=== PATIENT | male | born 1950 | race Caucasian/White ===

== ENCOUNTER 2019-12-19 20:39 | Emergency (ER) | payer BC, OTHER ==
[2019-12-19] MEDS ORDERED: Ringers Lactate 1,000 ML IV ONE (21:28)
[2019-12-19] MEDS ORDERED: ONDANSETRON 4 MG/2 ML VIAL ONE (21:28)
[2019-12-19 21:29] LABS: Absolute Lymphocytes (CBC) 0.8 K/uL (0.7-4.9); Basophils % 0.4 % (0-1.3); Hematocrit 43.2 % (39.6-49.0); Lymphocytes % 9.2 % (15.3-44.8); RBC Red Blood Cell Count 4.78 M/uL (4.33-5.43)
[2019-12-19 21:39] LABS: Albumin 3.1 g/dL (3.4-5.0); Bilirubin Direct 0.3 mg/dL (0-0.2); Bilirubin Total 1.1 mg/dL (0.2-1.0); Magnesium 2.4 mg/dL (1.8-2.4); Potassium 3.5 mmol/L (3.5-5.1); Protein, Total 7.6 g/dL (6.4-8.2)
--- NOTE | 2019-12-19 22:41 | EDPHYS ---
[facility] Name: Ronn Ortega Age: 69 yrs Sex: Male : 1950 Arrival Date: 12/19/2019 Time: 20:40 Bed 6 Private MD: ED Physician Aamir Escalona HPI: 12/18 21:56 This 69 yrs old Male presents to ER via Ambulatory with complaints of Fever, jr8 Covid +, low oxygen saturation. 21:56 The patient reports fever, not measured (subjective). Onset: The symptoms/episode jr8 began/occurred gradually, 1 week(s) ago. Associated signs and symptoms: Pertinent positives: diarrhea, nausea. Severity of symptoms: At their worst the symptoms were mild in the emergency department the symptoms are unchanged. The patient has not experienced similar symptoms in the past. The patient has been recently seen by a physician:. Patient stated that he came down with s/s of covid last week. Was admitted to [facility] on and released on Thursday. Stated that today he was monitoring his O2 saturation and had taken it several times showing low saturation below 90%. Denies GUERRA or shortness of breath. Came to be reevaluated . Historical: - Allergies: 20:55 No Known Allergies; ll1 - PMHx: 20:55 Hyperlipidemia; Diabetes - NIDDM; Hypertension; Hypothyroidism; ll1 - Immunization history:: Flu vaccine is up to date. - Social history:: Smoking status: Patient denies any tobacco usage or history of. ROS: 21:56 Eyes: Negative for injury, pain, redness, and discharge, ENT: Negative for injury, jr8 pain, and discharge, Neck: Negative for injury, pain, and swelling, Cardiovascular: Negative for chest pain, palpitations, and edema, Respiratory: Negative for shortness of breath, cough, wheezing, and pleuritic chest pain, Back: Negative for injury and pain, MS/Extremity: Negative for injury and deformity, Skin: Negative for injury, rash, and discoloration, Neuro: Negative for headache, weakness, numbness, tingling, and seizure. 21:56 Abdomen/GI: Positive for nausea. Exam: 21:56 Eyes: Pupils equal round and reactive to light, extra-ocular motions intact. Lids and jr8 lashes normal. Conjunctiva and sclera are non-icteric and not injected. Cornea within normal limits. Periorbital areas with no swelling, redness, or edema. ENT: Nares patent. No nasal discharge, no septal abnormalities noted. Tympanic membranes are normal and external auditory canals are clear. Oropharynx with no redness, swelling, or masses, exudates, or evidence of obstruction, uvula midline. Mucous membranes moist. Neck: Trachea midline, no thyromegaly or masses palpated, and no cervical lymphadenopathy. Supple, full range of motion without nuchal rigidity, or vertebral point tenderness. No Meningismus. Cardiovascular: Regular rate and rhythm with a normal S1 and S2. No gallops, murmurs, or rubs. Normal PMI, no JVD. No pulse deficits. Respiratory: Lungs have equal breath sounds bilaterally, clear to auscultation and percussion. No rales, rhonchi or wheezes noted. No increased work of breathing, no retractions or nasal flaring. Abdomen/GI: Soft, non-tender, with normal bowel sounds. No distension or tympany. No guarding or rebound. No evidence of tenderness throughout. Back: No spinal tenderness. No costovertebral tenderness. Full range of motion. Skin: Warm, dry with normal turgor. Normal color with no rashes, no lesions, and no evidence of cellulitis. MS/ Extremity: Pulses equal, no cyanosis. Neurovascular intact. Full, normal range of motion. Neuro: Awake and alert, GCS 15, oriented to person, place, time, and situation. Cranial nerves II-XII grossly intact. Motor strength 5/5 in all extremities. Sensory grossly intact. Cerebellar exam normal. Normal gait. Vital Signs: 20:51 BP 154 / 86; Pulse 92; Resp 18; Temp 98.3; Pulse Ox 100% ; Pain 0/10; ll1 21:42 BP 145 / 89; Pulse 83; Resp 21; Pulse Ox 93% on R/A; rv 22:55 BP 135 / 78; Pulse 80; Resp 18; Temp 98.2; Pulse Ox 95% on R/A; mg2 MDM: 20:54 Patient medically screened. [facility] 21:56 Data reviewed: vital signs, nurses notes, lab test result(s), and as a result, I will jr8 discharge patient. Data interpreted: Pulse oximetry: on room air is 94 %. Interpretation: acceptable. Counseling: I had a detailed discussion with the patient and/or guardian regarding: the historical points, exam findings, and any diagnostic results supporting the discharge/admit diagnosis, the presence of at least one elevated blood pressure reading (>120/80) during this emergency department visit, the need for outpatient follow up, a family practitioner, to return to the emergency department if symptoms worsen or persist or if there are any questions or concerns that arise at home. ED course: Patient continues to be without increased work of breathing. Oxygen saturation between 93-95% RA. No need for admission for oxygen requirement at this time. Discussed this with patient and need for continued monitoring at home. If worse to come back. Patient is good with this. Patient also on steroids still. 12/18 20:57 Order name: Basic Metabolic Panel; Complete Time: 21:56 12/18 20:57 Order name: CBC with Diff 12/18 20:57 Order name: Hepatic Function; Complete Time: 21:56 12/18 20:57 Order name: Lipase; Complete Time: 21:56 12/18 20:57 Order name: Magnesium; Complete Time: 21:56 12/18 21:33 Order name: Manual Differential EDMS 12/18 20:57 Order name: IV Saline Lock; Complete Time: 21:21 12/18 20:57 Order name: Labs collected and sent; Complete Time: 21:21 Administered Medications: 21:21 Drug: Lactated Ringers Solution 1000 ml Route: IV; Rate: 150 bolus; Site: left rv antecubital; 21:21 Drug: Zofran (Ondansetron) 4 mg Route: IVP; Site: left antecubital; rv 22:49 Follow up: Response: No adverse reaction mg2 Disposition: 12/19 06:30 Co-signature as Attending Physician, Aamir Escalona MD I agree with the assessment and 4 plan of care. Disposition: 12/19/19 22:40 Discharged to Home. Impression: Coronavirus as the cause of diseases classified elsewhere, Nausea. - Condition is Stable. - Discharge Instructions: Nausea and Vomiting, Adult, COVID-19. - Prescriptions for Zofran ODT 4 mg Oral tablet,disintegrating - place 1 tablet by TRANSLINGUAL route every 8 hours As needed; 12 tablet. - Medication Reconciliation Form, Thank You Letter, Antibiotic Education, Prescription Opioid Use form. - Follow up: Private Physician; When: 2 - 3 days; Reason: Recheck today's complaints, Continuance of care, Re-evaluation by your physician. - Problem is new. - Symptoms have improved. Signatures: Dispatcher [employer] EDMS Sukhdeep Pickering, BONI PA jr8 Aamir Escalona MD MD tw4 Roosevelt Fitch, RN RN mg2 Zen Dee RN RN rv Chalino Leone RN RN ll1 Corrections: (The following items were deleted from the chart) 12/18 22:40 22:40 12/19/2019 22:40 Discharged to Home. Impression: Coronavirus as the cause of jr8 diseases classified elsewhere. Condition is Stable. Forms are Medication Reconciliation Form, Thank You Letter, Antibiotic Education, Prescription Opioid Use. Follow up: Private Physician; When: 2 - 3 days; Reason: Recheck today's complaints, Continuance of care, Re-evaluation by your physician. Problem is new. Symptoms have improved. jr8 22:56 22:40 12/19/2019 22:40 Discharged to Home. Impression: Coronavirus as the cause of mg2 diseases classified elsewhere; Nausea. Condition is Stable. Forms are Medication Reconciliation Form, Thank You Letter, Antibiotic Education, Prescription Opioid Use. Follow up: Private Physician; When: 2 - 3 days; Reason: Recheck today's complaints, Continuance of care, Re-evaluation by your physician. Problem is new. Symptoms have improved. jr8
--- NOTE | 2019-12-19 22:41 | ER ---
Nurse's Notes [facility] Name: Ronn Ortega Age: 69 yrs Sex: Male : 1950 Arrival Date: 12/19/2019 Time: 20:40 Bed 6 Private MD: Diagnosis: Coronavirus as the cause of diseases classified elsewhere;Nausea Presentation: 12/18 20:51 Chief complaint: Patient states: Covid positive last week, admitted to [place]. ll1 Started to feel bad again Thursday. + diarrhea and weak. Fever 102 at home. Coronavirus screen: Client denies travel out of the [place] in the last 14 days. cough unrelated to allergies, fatigue, fever, Client reports previous positive COVID test result. Ebola Screen: Patient denies travel to an Ebola-affected area in the 21 days before illness onset. Initial Sepsis Screen: Does the patient meet any 2 criteria? No. Patient's initial sepsis screen is negative. Risk Assessment: Do you want to hurt yourself or someone else? Patient reports no desire to harm self or others. Onset of symptoms was December 12, 2019. 20:51 Method Of Arrival: Ambulatory ll1 20:51 Acuity: JESSICA 3 ll1 21:42 Initial Sepsis Screen: Does the patient have a suspected source of infection? No. rv Patient's initial sepsis screen is negative. Historical: - Allergies: 20:55 No Known Allergies; ll1 - PMHx: 20:55 Hyperlipidemia; Diabetes - NIDDM; Hypertension; Hypothyroidism; ll1 - Immunization history:: Flu vaccine is up to date. - Social history:: Smoking status: Patient denies any tobacco usage or history of. Screenin:42 Abuse screen: Denies threats or abuse. Denies injuries from another. Nutritional rv screening: No deficits noted. Tuberculosis screening: No symptoms or risk factors identified. Fall Risk None identified. Assessment: 21:41 General: Appears comfortable, Behavior is calm, cooperative. Pain: Complains of pain in rv abdomen. Neuro: Level of Consciousness is awake, alert, obeys commands, Oriented to person, place, time, situation. Cardiovascular: Patient's skin is warm and dry. Rhythm is sinus rhythm. Respiratory: Airway is patent Respiratory effort is even, unlabored, Breath sounds are clear bilaterally. Derm: Skin is intact. 21:43 Reassessment: patient's oxygen saturation is between 91-93% at room air. referred to [place], advised observation. patient denies SOB/ at this time. 22:55 Reassessment: Patient appears in no apparent distress at this time. Patient and/or mg2 family updated on plan of care and expected duration. Pain level reassessed. Patient is alert, oriented x 3, equal unlabored respirations, skin warm/dry/pink. Vital Signs: 20:51 BP 154 / 86; Pulse 92; Resp 18; Temp 98.3; Pulse Ox 100% ; Pain 0/10; ll1 21:42 BP 145 / 89; Pulse 83; Resp 21; Pulse Ox 93% on R/A; rv 22:55 BP 135 / 78; Pulse 80; Resp 18; Temp 98.2; Pulse Ox 95% on R/A; mg2 ED Course: 20:40 Patient arrived in ED. cl3 20:48 Zen Dee RN is Primary Nurse. rv 20:49 Sukhdeep Pickering PA is PHCP. jr8 20:49 Aamir Escalona MD is Attending Physician. jr8 20:54 Triage completed. ll1 20:55 Arm band placed on Patient placed in an exam room, on a stretcher. ll1 21:21 Initial lab(s) drawn, by me, sent to lab. Inserted saline lock: 20 gauge in left rv antecubital area, using aseptic technique. Blood collected. 21:42 Patient has correct armband on for positive identification. cardiac monitor technician on. Pulse rv ox on. NIBP on. 22:55 No provider procedures requiring assistance completed. IV discontinued, intact, mg2 bleeding controlled, No redness/swelling at site. Pressure dressing applied. Administered Medications: 21:21 Drug: Lactated Ringers Solution 1000 ml Route: IV; Rate: 150 bolus; Site: left rv antecubital; 21:21 Drug: Zofran (Ondansetron) 4 mg Route: IVP; Site: left antecubital; rv 22:49 Follow up: Response: No adverse reaction mg2 Outcome: 22:40 Discharge ordered by . jr8 22:56 Discharged to home ambulatory. mg2 22:56 Condition: good 22:56 Discharge instructions given to patient, Instructed on discharge instructions, follow up and referral plans. medication usage, Demonstrated understanding of instructions, follow-up care, medications, Prescriptions given X 1. 22:56 Patient left the ED. mg2 Signatures: Sukhdeep Pickering PA PA jr8 Roosevelt Fitch RN RN mg2 Zen Dee RN RN rv Татьяна Leone cl3 Chalino Leone RN RN ll1
[2019-12-19 22:59] LABS: Blood Morphology Comment NOT SEEN (NOT SEEN); Platelet Estimate ADEQ
[2019-12-19 23:08] VITALS: BP 135/78; TEMP 98.2; O2SAT 95
== END 2019-12-19 22:56 | disposition home or self-care (01) ==
LOC: ER 20:39
DX: U07.1 COVID-19 (principal); R11.0 Nausea
CPT/HCPCS: 85025; 80048; 36415; 83735; 80076; 83690; 96374; 99284; J7120; J2405

== ENCOUNTER 2020-03-18 21:17 | Observation (INO) | payer OTHER ==
--- OUTSIDE RECORDS SUMMARY | 2020-03-18 21:19 | XMS REPORT | Continuity of Care Document ---
:1950 Author Organization [facility] Address [address] [place] [address] Care Team Providers Name Role Phone Sanford Lopez MD Primary Care Physician Doctor Unassigned, Name Attending Clinician Unavailable John AMARO Attending Clinician Problems Condition Condition Condition Status Onset Resolution Last Treating Co mments Source Name Details Category Date Date Treatment Clinician Date Unstable Un[facility] 00 Syncope Syncope Disease Active [place] and and 12-25 [facility] collapse collapse 00:00: st 00 Allergies, Adverse Reactions, Alerts This patient has no known allergies or adverse reactions. Social History Social Habit Start Date Stop Date Quantity Comments Source Sex Assigned At [facility]ist Tobacco use and 2018-12-26 2018-12-26 Never used [facility] exposure 00:00:00 00:00:00 Alcohol intake 2018-12-26 2018-12-26 Ex-drinker [facility] 00:00:00 00:00:00 (finding) Smoking Status Start Date Stop Date Source Never smoker [place] [facility] Medications Ordered Filled Start Stop Current Ordering Indication Dosage Frequency Signature Comments Components Source Medication Medication Date Date Medication? Clinician (SIG) Name Name metFORMIN Yes 1000mg Q.5D Take 1,000 [place] (GLUCOPHAGE 9-29 mg by [facility] ) 1,000 mg 13:25: mouth 2 st tablet 58 (two) times a day with meals. glimepiride Yes 4mg QD Take 4 mg [place] (AMARYL) 4 - by mouth Metho di MG tablet 13:25: daily st 58 before breakfast. aspirin Yes 81mg QD Take 81 mg [place] (ECOTRIN) 9- by mouth Method i 81 MG 13:25: daily. st enteric 58 coated tablet levothyroxi Yes 50ug QD Take 50 [place] st[place] ne 9-29 mcg by [facility] (SYNTHROID, 13:25: mouth st LEVOXYL) 50 58 daily. mcg tablet atorvastati Yes 20mg QD Take 20 mg [place] n (LIPITOR) 9-29 by mouth Meth rosetta 20 MG 13:25: daily. st tablet 58 Default OP ins Procedures This patient has no known procedures. Plan of Care Planned Activity Planned Date Details Comments Source Future Scheduled 2019-10-29 INFLUENZA VACCINE [place] [facility] 00:00:00 [code = INFLUENZA VACCINE] Future Scheduled 2017 65+ PNEUMOCOCCAL [place] [facility] 00:00:00 VACCINE (1 of 1 - PPSV23) [code = 65+ PNEUMOCOCCAL VACCINE (1 of 1 - PPSV23)] Future Scheduled 2002 COLONOSCOPY SCREENING [place] [facility] 00:00:00 [code = COLONOSCOPY SCREENING] Future Scheduled 2002 SHINGLES VACCINES (#1) [facility] 00:00:00 [code = SHINGLES VACCINES (#1)] Future Scheduled 1968 COVID-19 VACCINE (#1) [place] [facility] 00:00:00 [code = COVID-19 VACCINE (#1)] Future Scheduled 1962 DIABETES: RETINAL EYE [place] [facility] 00:00:00 EXAM [code = DIABETES: RETINAL EYE EXAM] Future Scheduled 1962 DIABETIC FOOT EXAM [place] [facility] 00:00:00 [code = DIABETIC FOOT EXAM] Future Scheduled 1962 URINE MICROALBUMIN [place] [facility] 00:00:00 [code = URINE MICROALBUMIN] Encounters Start End Encounter Admission Attending Care Care Encounter Source Date/Time Date/Time Type Type Clinicians Facility Department ID 2020-02-06 2020-02-06 Orders Doctor MULLEN [id number] 00:00:00 00:00:00 Only Unassigned, KARMA [id number] [place] [facility] [id number] 2020-01-16 2020-01-16 Office LopezANTOINETTE [id number] 30 12:43:52 12:58:52 [facility] [id number] [place] [id number] [place] [phone] nal 044 Office [address] 2020-01-16 2020-01-16 Orders Doctor PAZ [id number] 00:00:00 00:00:00 Only Unassigned, [place] [id number] [place] [facility] [id number] Results This patient has no known results.
--- OUTSIDE RECORDS SUMMARY | 2020-03-18 21:19 | XMS REPORT | Summary of Care ---
:1950 Author Organization [facility] Address [address] [place] [address] Care Team Providers Name Role Phone MD John Primary Care Provider Reason for Visit Reason Comments Follow-up annual checkup Diabetes discuss control of DM Encounter Details Date Type Department Care Team Description 01/16/2020 Office Visit [facility] Family Dillon Lopez, Type 2 diabetes mellitus with other specified complication, without long-term current use of insulin (Primary Dx); Juan Mitchell MD Essential hypertension; [address] [place] [address] Hyperlip idemia, unspecified hyperlipidemia type; Drive DR[address] Hypothyroidism, [place] [phone] Allergies No Known Allergiesdocumented as of this encounter (statuses as of 01/16/2020) Medications Medication Sig Dispensed Refills Start Date End Date Status atorvastatin 40 mg Take 1 90 tablet 1 01/16/2020 Active tabletIndications: tablet by Type 2 diabetes mouth mellitus with other daily. specified complication, without long-term current use of insulin metFORMIN 1,000 mg Take 1 180 tablet 1 01/16/2020 Active tabletIndications: tablet by Type 2 diabetes mouth 2 mellitus with other (two) times specified daily. complication, without long-term current use of insulin lisinopriL 20 mg Take 1 90 tablet 1 01/16/2020 Ac tive tabletIndications: tablet by Essential mouth hypertension daily. levothyroxine 100 TAKE ONE 90 tablet 1 01/16/2020 A ctive mcg TABLET BY tabletIndications: MOUTH ONCE Hypothyroidism, DAILY unspecified type glimepiride 4 mg Take 1 90 tablet 1 01/16/2020 Ac tive tabletIndications: tablet by Type 2 diabetes mouth mellitus with other daily. specified complication, without long-term current use of insulin bisoproloL-hydrochl Take 1 90 tablet 1 01/16/2020 Active orothiazide 5-6.25 tablet by mg per mouth tabletIndications: daily. Essential hypertension dulaglutide inject 0.5 12 Syringe 1 01/16/2020 Activ e (TRULICITY) 0.75 mL under mg/0.5 mL the skin PnIjIndications: weekly. Type 2 diabetes mellitus with other specified complication, without long-term current use of insulin Liraglutide inject 0.3 9 Syringe 1 08/28/2016 Discon tinued (VICTOZA 2-RASHEEDA) 0.6 mL under 0 (Availability) mg/0.1 mL (18 mg/3 the skin mL) injection daily. LEVOTHYROXINE 100 TAKE ONE 90 tablet 0 09/23/2016 D iscontinued mcg tablet TABLET BY 0 (Reorder) MOUTH ONCE DAILY METFORMIN 1,000 mg TAKE ONE 180 tablet 1 03/11/2017 Discontinued tablet TABLET BY 0 (Reorder) MOUTH TWICE DAILY PRAVASTATIN 40 mg TAKE ONE 90 tablet 1 05/01/2017 D iscontinued tablet TABLET BY 0 (Ineffecti ve MOUTH ONCE Medicatio n) DAILY GLIMEPIRIDE 4 mg TAKE ONE 90 tablet 1 07/27/2017 Di scontinued tablet TABLET BY 0 (Reorder) MOUTH ONCE DAILY BISOPROLOL-HYDROCHL TAKE ONE 30 tablet 0 11/05/2017 Discontinued OROTHIAZIDE 5-6.25 TABLET BY 0 ( Reorder) mg per tablet MOUTH ONCE DAILY LISINOPRIL 20 mg TAKE ONE 90 tablet 1 04/05/2018 Di scontinued tablet TABLET BY 0 (Reorder) MOUTH ONCE DAILY atorvastatin 40 mg Take 40 mg 0 Discontinued tablet by mouth 0 (Reorder) daily. documented as of this encounter (statuses as of 01/16/2020) Active Problems Problem Noted Date Type 2 diabetes mellitus 05/31/2015 Essential hypertension 05/31/2015 Hyperlipidemia 05/31/2015 documented as of this encounter (statuses as of 01/16/2020) Social History Tobacco Use Types Packs/Day Years Used Date Never Smoker Smokeless Tobacco: Never Used Sex Assigned at Date Recorded Not on file COVID-19 Exposure Response Date Recorded In the last month, have you been in contact with No / Unsure 01/16/2020 12:54 PM CDT someone who was confirmed or suspected to have Coronavirus / COVID-19? documented as of this encounter Last Filed Vital Signs Vital Sign Reading Time Taken Comments Blood Pressure 123/72 01/16/2020 12:53 PM CDT Pulse 83 01/16/2020 12:53 PM CDT Temperature - - Respiratory Rate - - Oxygen Saturation - - Inhaled Oxygen Concentration - - Weight 87.1 kg (192 lb) 01/16/2020 12:53 PM CDT Height - - Body Mass Index - - documented in this encounter Progress Notes Dillon Lopez MD - 01/16/2020 1:00 PM CDT Cc: DM, f/u Chief Complaint Patient presents with Follow-up annual checkup Diabetes discuss control of DM Ronn Ortega is a 69 year old male. Here to f/u on DM, HTN Allergies Ronn has No Known Allergies. Medications Outpatient Medications Prior to Visit Medication Sig Dispense Refill LISINOPRIL 20 mg tablet TAKE ONE TABLET BY MOUTH ONCE DAILY 90 tablet 1 BISOPROLOL-HYDROCHLOROTHIAZIDE 5-6.25 mg per tablet TAKE ONE TABLET BY MOUTH ONCE DAILY 30 tablet 0 GLIMEPIRIDE 4 mg tablet TAKE ONE TABLET BY MOUTH ONCE DAILY 90 tablet 1 PRAVASTATIN 40 mg tablet TAKE ONE TABLET BY MOUTH ONCE DAILY 90 tablet 1 METFORMIN 1,000 mg tablet TAKE ONE TABLET BY MOUTH TWICE DAILY 180 tablet 1 LEVOTHYROXINE 100 mcg tablet TAKE ONE TABLET BY MOUTH ONCE DAILY 90 tablet 0 Liraglutide (VICTOZA 2-RASHEEDA) 0.6 mg/0.1 mL (18 mg/3 mL) injection inject 0.3 mL under the skin daily. 9 Syringe 1 No facility-administered medications prior to visit. Histories No past medical history on file. No past surgical history on file. Social History Socioeconomic History Marital status: Spouse name: Not on file Number of children: Not on file Years of education: Not on file Highest education level: Not on file Occupational History Not on file Social Needs Financial resource strain: Not on file Food insecurity Worry: Not on file Inability: Not on file Transportation needs Medical: Not on file Non-medical: Not on file Tobacco Use Smoking status: Not on file Substance and Sexual Activity Alcohol use: Not on file Drug use: Not on file Sexual activity: Not on file Lifestyle Physical activity Days per week: Not on file Minutes per session: Not on file Stress: Not on file Relationships Social connections Talks on phone: Not on file Gets together: Not on file Attends amish service: Not on file Active member of club or organization: Not on file Attends meetings of clubs or organizations: Not on file Relationship status: Not on file Intimate partner violence Fear of current or ex partner: Not on file Emotionally abused: Not on file Physically abused: Not on file Forced sexual activity: Not on file Other Topics Concern Not on file Social History Narrative Not on file No family history on file. Review of Systems Vital Signs There were no vitals taken for this visit. Physical Exam Vitals signs reviewed. Constitutional: Appearance: Normal appearance. HENT: Head: Normocephalic and atraumatic. Right Ear: Tympanic membrane normal. Left Ear: Tympanic membrane normal. Nose: Nose normal. Neck: Musculoskeletal: Normal range of motion. Cardiovascular: Rate and Rhythm: Normal rate and regular rhythm. Pulses: Normal pulses. Pulmonary: Effort: Pulmonary effort is normal. Breath sounds: Normal breath sounds. Musculoskeletal: Normal range of motion. Skin: General: Skin is warm and dry. Neurological: General: No focal deficit present. Mental Status: He is alert. Assessment/Plan HTN, DMII, need medication update, add trulicity Vacuum device for ED This visit did not involve counseling and coordination that comprised more than 50% of the visit time. documented in this encounter Plan of Treatment Health Maintenance Due Date Last Done Comments HEPATITIS C (HCV) SCREEN 1950 EYE EXAM 1960 URINE MICROALBUMIN 1962 FOOT EXAM 1970 DTaP,Tdap,and Td Vaccines (1 - Tdap) 08/08/1971 COLON CANCER SCREENING ANNUAL FIT/FOBT 2002 COLON CANCER SCREENING FIT DNA EVERY 3 2002 YEARS COLON CANCER SCREENING SIGMOIDOSCOPY EVERY 2002 5 YEARS COLONOSCOPY 2002 Colorectal Cancer Screening 2002 Zoster Recombinant Vaccine (SHINGRIX) (1 2002 of 2) HgA1C 02/26/2017 08/26/2016 Medicare Wellness Visit 2017 PNEUMOCOCCAL VACCINES 65+ (1 of 1 - 2017 PPSV23) CREATININE (SERUM) 08/26/2017 08/26/2016 LDL-C 08/26/2017 08/26/2016 INFLUENZA VACCINE (#1) 2019 Depression Screening 01/15/2021 01/16/2020, 01/16/2020 documented as of this encounter Results Not on filedocumented in this encounter Visit Diagnoses Diagnosis Type 2 diabetes mellitus with other spec ified complication, without long-term current use of insulin - Primary Essential hypertension Unspecified essential hypertension Hyperlipidemia, unspecified hyperlipidem ia type Hypothyroidism, unspecified type documented in this encounter Insurance Payer Benefit Plan / Subscriber ID Effective Phone Address T ype Group Dates MEDICARE MEDICARE PART [id number] 2017-Pres [phone] A & B ent [phone] [place] [address] COMMERCIAL COMMERCIAL [id number] 2017-Pres HMO /PPO/POS NON-CONTRACT NON-CONTRACT ent GENERIC GENERIC documented as of this encounter
--- OUTSIDE RECORDS SUMMARY | 2020-03-18 21:19 | XMS REPORT | Clinical Summary ---
:1950 Author Organization [facility] Address [address] [place] [address] Care Team Providers Name Role Phone Sanford Lopez MD Primary Care Provider Allergies No Known Active Allergies Medications Medication Sig Dispensed Refills Start Date End Date Status metFORMIN (GLUCOPHAGE) Take 1,000 mg by 0 Active 1,000 mg tablet mouth 2 (two) times a day with meals. glimepiride (AMARYL) 4 Take 4 mg by 0 Active MG tablet mouth daily before breakfast. aspirin (ECOTRIN) 81 MG Take 81 mg by 0 Active enteric coated tablet mouth daily. levothyroxine Take 50 mcg by 0 A ctive (SYNTHROID, LEVOXYL) 50 mouth daily. mcg tablet atorvastatin (LIPITOR) Take 20 mg by 0 Active 20 MG tablet mouth daily. Default OP ins Active Problems Problem Noted Date Unstable angina 12/26/2018 Syncope and collapse 12/25/2018 Medical History Medical History Date Comments Hypertension Diabetes mellitus (HCC) Hypercholesteremia Social History Tobacco Use Types Packs/Day Years Used Date Never Smoker Smokeless Tobacco: Never Used Alcohol Use Drinks/Week oz/Week Comments Not Currently Sex Assigned at Date Recorded Not on file Last Filed Vital Signs Not on file Plan of Treatment Health Maintenance Due Date Last Done Comments DIABETES: RETINAL EYE EXAM 1962 DIABETIC FOOT EXAM 1962 URINE MICROALBUMIN 1962 COVID-19 VACCINE (#1) 1968 COLONOSCOPY SCREENING 2002 SHINGLES VACCINES (#1) 2002 65+ PNEUMOCOCCAL VACCINE (1 of 1 - PPSV23) 2017 INFLUENZA VACCINE 10/29/2019 Results Not on fileafter 03/18/2019 Insurance Payer Benefit Plan / Subscriber ID Effective Phone Address T ype Group Dates MEDICARE MEDICARE PART A [id number] 2017-Pres [place], [place] Medicare AND B ent COMMERCIAL MISC MISC COMMERCIAL [id number] 2017-Pres Commercial ent Advance Directives For more information, please contact: [phone] Type Date Recorded Patient Manager Telemetry Explanati on Advance Directives, Living Will and Medical Power of Formulation Technician
--- OUTSIDE RECORDS SUMMARY | 2020-03-18 21:20 | XMS REPORT | Summary of Care ---
:1950 Author Organization [facility] - [facility] Address [address] [place] [address] Care Team Providers Name Role Phone MD John Primary Care Provider Encounter Details Date Type Department Care Team Description 02/06/2020 Orders Only [facility] Doctor Unassigned, No [address] [facility] Name [place] [id number] [address] [place] [id number] Allergies No Known Allergiesdocumented as of this encounter (statuses as of 02/06/2020) Medications Medication Sig Dispensed Refills Start Date End Date Status atorvastatin 40 mg Take 1 tablet by 90 tablet 1 01/16/2020 Active tabletIndications: Type mouth daily. 2 diabetes mellitus with other specified complication, without long-term current use of insulin metFORMIN 1,000 mg Take 1 tablet by 180 tablet 1 01/16/2020 Active tabletIndications: Type mouth 2 (two) 2 diabetes mellitus times daily. with other specified complication, without long-term current use of insulin lisinopriL 20 mg Take 1 tablet by 90 tablet 1 01/16/2020 Active tabletIndications: mouth daily. Essential hypertension levothyroxine 100 mcg TAKE ONE TABLET 90 tablet 1 01/16/2020 Active tabletIndications: BY MOUTH ONCE Hypothyroidism, DAILY unspecified type glimepiride 4 mg Take 1 tablet by 90 tablet 1 01/16/2020 Active tabletIndications: Type mouth daily. 2 diabetes mellitus with other specified complication, without long-term current use of insulin bisoproloL-hydrochlorot Take 1 tablet by 90 tablet 1 0 Active hiazide 5-6.25 mg per mouth daily. tabletIndications: Essential hypertension dulaglutide (TRULICITY) inject 0.5 mL 12 Syringe 1 01/16/2020 Active 0.75 mg/0.5 mL under the skin PnIjIndications: Type 2 weekly. diabetes mellitus with other specified complication, without long-term current use of insulin documented as of this encounter (statuses as of 02/06/2020) Active Problems Problem Noted Date Type 2 diabetes mellitus 05/31/2015 Essential hypertension 05/31/2015 Hyperlipidemia 05/31/2015 documented as of this encounter (statuses as of 02/06/2020) Social History Tobacco Use Types Packs/Day Years [...] of this encounter Last Filed Vital Signs Not on filedocumented in this encounter Plan of Treatment Date Type Specialty Care Team Description 07/16/2020 Office Visit Family Medicine Dillon Lopez MD [address] [place] [phone] Health Maintenance Due Date Last Done Comments [...] 01/16/2020, 01/16/2020 documented as of this encounter Procedures Procedure Name Priority Date/Time Associated Diagnosis Comme nts EXTERNAL PROVIDER Routine 02/06/2020 12:01 AM CROP DUSTER RECORDS documented in this encounter Results Not on filedocumented in this encounter Insurance Payer Benefit Plan / Subscriber ID Effective Phone Address T ype Group Dates MEDICARE MEDICARE PART [id number] 2017-Pres [phone] Medicare A & B ent [phone] [id number] [place] [address] COMMERCIAL COMMERCIAL [id number] 2017-Pres HMO /PPO/POS NON-CONTRACT NON-CONTRACT ent GENERIC GENERIC documented as of this encounter
--- OUTSIDE RECORDS SUMMARY | 2020-03-18 21:20 | XMS REPORT | Summary of Care ---
:1950 Author Organization [facility] Address [address] [place] [address] Care Team Providers Name Role Phone MD John Primary Care Provider Reason for Visit Reason Comments Follow-up annual checkup Diabetes discuss control of DM Encounter Details Date Type Department Care Team Description 01/16/2020 Office Visit [facility] Family Dillon Lopez, Type 2 diabetes mellitus with other specified complication, without long-term current use of insulin (Primary Dx); Juan Mitchell MD Essential hypertension; [address] [place] [address] Hyperlip idemia, unspecified hyperlipidemia type; [address] Hypothyroidism, [place] [phone] Allergies No Known Allergiesdocumented [...] file Gets together: Not on file Attends bapt[employer] service: Not on file Active member of [...] T ype Group Dates MEDICARE MEDICARE PART [id number] 2017-Pres [phone] Medicare A & B ent [phone] [id number] [place] [address] COMMERCIAL COMMERCIAL [id number] 2017-Pres HMO /PPO/POS NON-CONTRACT NON-CONTRACT ent GENERIC GENERIC documented as of this encounter
--- OUTSIDE RECORDS SUMMARY | 2020-03-18 21:20 | XMS REPORT | Summary of Care ---
:1950 Author Organization [facility] - Health Address [address] [place] [address] Care Team Providers Name Role Phone MD John Primary Care Provider Encounter Details Date Type Department Care Team Description 01/16/2020 Orders Only [facility] Doctor Unassigned, No 301 [facility] Name [place] [id number] [place] [id number] Allergies No Known Allergiesdocumented as of this encounter (statuses as of 01/17/2020) Medications Medication Sig Dispensed Refills Start Date [...] as of this encounter (statuses as of 01/17/2020) Active Problems Problem Noted Date Type 2 diabetes mellitus 05/31/2015 Essential hypertension 05/31/2015 Hyperlipidemia 05/31/2015 documented as of this encounter (statuses as of 01/17/2020) Social History Tobacco Use Types Packs/Day Years [...] Office Visit Family Medicine Dillon Lopez MD [address] [place] [phone] Health Maintenance Due Date Last Done [...] Name Priority Date/Time Associated Diagnosis Comme nts AUTHORIZATION TO RELEASE Routine 01/16/2020 12:01 AM PHI TO [facility] CDT documented in this encounter Results Not on filedocumented in this encounter Insurance Payer Benefit Plan / Subscriber ID Effective Phone Address T ype Group Dates MEDICARE MEDICARE PART [id number] 2017-Pres [phone] Medicare A & B ent [phone] [id number] [place] [address] COMMERCIAL COMMERCIAL [id number] 2017-Pres HMO /PPO/POS NON-CONTRACT NON-CONTRACT ent GENERIC GENERIC documented as of this encounter
[2020-03-18] MEDS ORDERED: ASPIRIN 81 MG CHEWABLE TABLET ONE (22:09)
[2020-03-18 22:32] LABS: Protime INR 0.91
[2020-03-18 22:33] LABS: Absolute Lymphocytes (CBC) 2.4 K/uL (0.7-4.9); Basophils % 0.5 % (0-1.3); Hematocrit 41.8 % (39.6-49.0); MPV 7.5 fL (7.6-11.3); RBC Red Blood Cell Count 4.56 M/uL (4.33-5.43)
[2020-03-18 22:49] LABS: ALT/SGPT 16 U/L (12-78); AST/SGOT 18 U/L (15-37); Alkaline Phosphatase 63 U/L (45-117); BUN Blood Urea Nitrogen 12 mg/dL (7-18); Bicarbonate 28 mmol/L (21-32); Bilirubin Direct 0.2 mg/dL (0-0.2); Bilirubin Total 0.9 mg/dL (0.2-1.0); Glucose Level 266 mg/dL (74-106); Magnesium 2.2 mg/dL (1.8-2.4); NT PRO-BNP 73 pg/mL (<125); Potassium 3.5 mmol/L (3.5-5.1); Protein, Total 7.6 g/dL (6.4-8.2); Sodium Level 138 mmol/L (136-145); Troponin (Emerg Dept Use Only) < 0.02 ng/mL (0.0-0.045)
[2020-03-19 01:45] LABS: Troponin (Emerg Dept Use Only) < 0.02 ng/mL (0.0-0.045)
--- NOTE | 2020-03-19 01:50 | ER ---
Nurse's Notes [facility] Name: Ronn Ortega Age: 69 yrs Sex: Male : 1950 Arrival Date: 03/18/2020 Time: 21:17 Bed 5 Private MD: Dillon Lopez S Diagnosis: Chest pain, unspecified Presentation: 03/18 21:28 Chief complaint: Patient states: CP off/on for a few days. Has gotten worse and more ll1 constant the past hour. Noticed pain radiates into neck area. Coronavirus screen: Client denies travel out of the [place] in the last 14 days. At this time, the client does not indicate any symptoms associated with coronavirus-19. Ebola Screen: Patient denies travel to an Ebola-affected area in the 21 days before illness onset. Initial Sepsis Screen: Does the patient meet any 2 criteria? No. Patient's initial sepsis screen is negative. Risk Assessment: Do you want to hurt yourself or someone else? Patient reports no desire to harm self or others. Onset of symptoms was March 15, 2020. 21:28 Method Of Arrival: Ambulatory ll1 21:28 Acuity: JESSICA 3 ll1 Historical: - Allergies: 21:31 No Known Allergies; ll1 - PMHx: 21:31 Diabetes - NIDDM; Hyperlipidemia; Hypertension; Hypothyroidism; ll1 - PSHx: 21:31 None; ll1 - Immunization history:: Flu vaccine is up to date. - Social history:: Smoking status: Patient denies any tobacco usage or history of. Screenin/21 01:26 Abuse screen: Denies threats or abuse. Denies injuries from another. Nutritional mg2 screening: No deficits noted. Tuberculosis screening: No symptoms or risk factors identified. Fall Risk IV access (20 points). Assessment: 03/18 21:35 General: Appears in no apparent distress. comfortable, Behavior is calm, cooperative, jb4 appropriate for age. Pain: Complains of pain in chest Pain radiates to throat Pain Quality of pain is described as filling Pain began 6 am Is intermittent. Neuro: Level of Consciousness is awake, alert, obeys commands, Oriented to person, place, time, situation. Cardiovascular: Patient's skin is warm and dry. Rhythm is sinus rhythm. Respiratory: Airway is patent Respiratory effort is even, unlabored, Respiratory pattern is regular, symmetrical. GI: No signs and/or symptoms were reported involving the gastrointestinal system. : No signs and/or symptoms were reported regarding the genitourinary system. EENT: No signs and/or symptoms were reported regarding the EENT system. Derm: Skin is intact, Skin is pink, warm \T\ dry. Musculoskeletal: Circulation, motion, and sensation intact. Range of motion: intact in all extremities. 22:45 Reassessment: Patient appears in no apparent distress at this time. Patient and/or jb4 family updated on plan of care and expected duration. Pain level reassessed. Patient is alert, oriented x 3, equal unlabored respirations, skin warm/dry/pink. 03/19 00:00 Reassessment: Patient appears in no apparent distress at this time. Patient and/or jb4 family updated on plan of care and expected duration. Pain level reassessed. Patient is alert, oriented x 3, equal unlabored respirations, skin warm/dry/pink. 01:00 Reassessment: Patient appears in no apparent distress at this time. Patient and/or jb4 family updated on plan of care and expected duration. Pain level reassessed. Patient is alert, oriented x 3, equal unlabored respirations, skin warm/dry/pink. 02:00 Reassessment: Patient appears in no apparent distress at this time. Patient and/or jb4 family updated on plan of care and expected duration. Pain level reassessed. Patient is alert, oriented x 3, equal unlabored respirations, skin warm/dry/pink. 03:00 Reassessment: Patient appears in no apparent distress at this time. Patient and/or jb4 family updated on plan of care and expected duration. Pain level reassessed. Patient is alert, oriented x 3, equal unlabored respirations, skin warm/dry/pink. 04:00 Reassessment: Patient appears in no apparent distress at this time. Patient and/or jb4 family updated on plan of care and expected duration. Pain level reassessed. Patient is alert, oriented x 3, equal unlabored respirations, skin warm/dry/pink. Vital Signs: 03/18 21:28 BP 143 / 83; Pulse 70; Resp 17; Temp 98.4; Pulse Ox 99% ; Weight 90.72 kg; Height 6 ft. ll1 2 in. (187.96 cm); Pain 4/10; 22:45 BP 108 / 73; Pulse 66; Resp 16; Pulse Ox 97% on R/A; jb4 23:45 BP 108 / 63; Pulse 67; Resp 14; Pulse Ox 98% on R/A; jb4 03/19 01:26 BP 108 / 71; Pulse 63; Resp 18; Pulse Ox 98% on R/A; mg2 02:30 BP 137 / 76; Pulse 63; Resp 16; Pulse Ox 99% on R/A; jb4 03:30 BP 128 / 79; Pulse 71; Resp 16; Pulse Ox 98% on R/A; jb4 03/18 21:28 Body Mass Index 25.68 (90.72 kg, 187.96 cm) 1 ED Course: 03/18 21:17 Patient arrived in ED. am2 21:18 Dillon Lopez MD is Private Physician. am2 21:27 Arm band placed on. ll1 21:30 Triage completed. ll1 21:30 Patient has correct armband on for positive identification. Bed in low position. Call jb4 light in reach. Side rails up X 1. personnel monitor on. Pulse ox on. NIBP on. 21:40 Kelby Mukherjee PA is PHCP. cp 21:41 Patric Tamez MD is Attending Physician. cp 21:51 Thompson Thakkar, DINESH is Primary Nurse. jb4 22:27 XRAY Chest (1 view) In Process Unspecified. EDMS 23:30 Initial lab(s) drawn, by vt, sent to lab. Inserted saline lock: 20 gauge in right jb4 antecubital area, using aseptic technique. Blood collected. Patient maintains SpO2 saturation greater than 95% on room air. 03/19 02:03 Arsenio Hurley MD is Hospitalizing Provider. cp 02:36 No provider procedures requiring assistance completed. Patient admitted, IV remains in jb4 place. Administered Medications: 03/18 21:59 Drug: Aspirin Chewable Tablet 324 mg Route: PO; jb4 22:30 Follow up: Response: No adverse reaction jb4 Outcome: 03/19 02:04 Decision to Hospitalize by Provider. cp 04:14 Admitted to Med/surg accompanied by nurse, via wheelchair, room 230, with chart, Report jb4 called to DINESH Chamberlain 04:14 Condition: stable 04:14 Discharge instructions given to patient, Instructed on the need for admit, Demonstrated understanding of instructions. 04:25 Patient left the ED. mg2 Signatures: Dispatcher [employer] EDMS Kelby Mukherjee PA PA cp Bryson, James RN RN jb4 Lucrecia Cedeno am2 Roosevelt Fitch RN RN mg2 Chalino Leone RN RN ll1
--- NOTE | 2020-03-19 01:50 | EDPHYS ---
Physician Documentation [facility] Name: Ronn Ortega Age: 69 yrs Sex: Male : 1950 Arrival Date: 03/18/2020 Time: 21:17 Bed 5 Private MD: Dillon Lopez S ED Physician Patric Tamez HPI: 03/18 21:51 This 69 yrs old Male presents to ER via Ambulatory with complaints of Chest cp Pain > 30 y/o. 21:51 The patient or guardian reports chest pain that is located primarily in the substernal cp area. Onset: today, at 20:00. The pain radiates to neck. 21:51 Duration: The patient or guardian reports a single episode, that is still ongoing, but cp improving. Historical: - Allergies: 21:31 No Known Allergies; ll1 - PMHx: 21:31 Diabetes - NIDDM; Hyperlipidemia; Hypertension; Hypothyroidism; ll1 - PSHx: 21:31 None; ll1 - Immunization history:: Flu vaccine is up to date. - Social history:: Smoking status: Patient denies any tobacco usage or history of. ROS: 21:55 Constitutional: Negative for body aches, chills, fever, poor PO intake. cp 21:55 Eyes: Negative for injury, pain, redness, and discharge. cp 21:55 ENT: Negative for ear pain, sore throat, difficulty swallowing, difficulty handling secretions. 21:55 Cardiovascular: Positive for chest pain, Negative for edema, palpitations. 21:55 Respiratory: Negative for cough, shortness of breath, wheezing. 21:55 Abdomen/GI: Negative for abdominal pain, nausea, vomiting, and diarrhea, constipation. 21:55 Back: Negative for radiated pain. 21:55 Neuro: Negative for altered mental status, headache, syncope, weakness. 21:55 All other systems are negative. Exam: 21:50 ECG was reviewed by the Attending Physician. cp 21:58 Constitutional: The patient appears in no acute distress, alert, awake, comfortable, cp non-diaphoretic, non-toxic, well developed, well nourished. 21:58 Head/Face: Normocephalic, atraumatic. cp 21:58 Eyes: Periorbital structures: appear normal, Conjunctiva: normal, no exudate, no injection, Sclera: no appreciated abnormality, Lids and lashes: appear normal, bilaterally. 21:58 ENT: External ear(s): are unremarkable, Nose: is normal, Mouth: Lips: moist, Oral mucosa: moist, Posterior pharynx: Airway: no evidence of obstruction, patent. 21:58 Neck: ROM/movement: is normal, is supple, without pain, no range of motions limitations. 21:58 Chest/axilla: Inspection: normal. 21:58 Cardiovascular: Rate: normal, Rhythm: regular, Pulses: Pulses are 2+ in right radial artery and left radial artery. Heart sounds: murmur, not appreciated, Edema: is not appreciated, JVD: is not appreciated. 21:58 Respiratory: the patient does not display signs of respiratory distress, Respirations: normal, no use of accessory muscles, no retractions, labored breathing, is not present, Breath sounds: are clear throughout, no decreased breath sounds, no stridor, no wheezing. 21:58 Abdomen/GI: Inspection: abdomen appears normal, Palpation: abdomen is soft and non-tender, in all quadrants. 21:58 Neuro: Orientation: to person, place \T\ time. Mentation: is normal. Vital Signs: 21:28 BP 143 / 83; Pulse 70; Resp 17; Temp 98.4; Pulse Ox 99% ; Weight 90.72 kg; Height 6 ft. ll1 2 in. (187.96 cm); Pain 4/10; 22:45 BP 108 / 73; Pulse 66; Resp 16; Pulse Ox 97% on R/A; jb4 23:45 BP 108 / 63; Pulse 67; Resp 14; Pulse Ox 98% on R/A; jb4 03/19 01:26 BP 108 / 71; Pulse 63; Resp 18; Pulse Ox 98% on R/A; mg2 02:30 BP 137 / 76; Pulse 63; Resp 16; Pulse Ox 99% on R/A; jb4 03:30 BP 128 / 79; Pulse 71; Resp 16; Pulse Ox 98% on R/A; jb4 03/18 21:28 Body Mass Index 25.68 (90.72 kg, 187.96 cm) ll1 MDM: 03/18 21:42 Patient medically screened. cp 22:00 Differential diagnosis: acute myocardial infarction, pneumonia, pneumothorax, pulmonary cp embolus, stable angina, thoracic aortic disection, unstable angina. 23:00 The patient was given aspirin in the Emergency Department. cp 23:00 HEART Score: History: Moderately Suspicious (1), ECG: Normal (0), Age: > or = 65 years cp (2), Risk Factors: > or = 3 Risk factors for atherosclerotic disease (2), [Hypercholesterolemia] [Hypertension] [DM] Troponin: < or = 1 x Normal Limit (0). 03/19 01:50 Data reviewed: vital signs, nurses notes, lab test result(s), EKG, radiologic studies, cp plain films, I have discussed the patient's presentation/case with the attending Emergency Department Physician;. 01:50 Test interpretation: by ED physician or midlevel provider: ECG, chest xray negative for cp infiltrates. Counseling: I had a detailed discussion with the patient and/or guardian regarding: the historical points, exam findings, and any diagnostic results supporting the discharge/admit diagnosis, lab results, radiology results, the need for further work-up and treatment in the hospital. 03/18 21:41 Order name: Basic Metabolic Panel; Complete Time: 22:56 cp 03/18 22:56 Interpretation: Normal except: GLUC 266. cp 03/18 21:41 Order name: CBC with Diff; Complete Time: 22:56 cp 03/18 21:41 Order name: LFT's; Complete Time: 22:56 cp 03/18 21:41 Order name: Magnesium; Complete Time: 22:56 cp 03/18 21:41 Order name: NT PRO-BNP; Complete Time: 22:56 cp 03/18 21:41 Order name: PT-INR; Complete Time: 22:56 cp 03/18 21:41 Order name: Troponin (emerg Dept Use Only); Complete Time: 22:56 cp 03/19 01:02 Order name: Troponin (emerg Dept Use Only) jb4 03/19 01:49 Interpretation: Reviewed. cp 03/19 02:29 Order name: Lipid Profile EDMS 03/19 02:29 Order name: Thyroid Stimulating Hormone EDMS 03/19 02:29 Order name: CBC with Automated Diff EDMS 03/19 02:29 Order name: CBC with Automated Diff EDMS 03/19 02:29 Order name: Comprehensive Metabolic Panel EDDC 03/19 02:29 Order name: Comprehensive Metabolic Panel EDDC 03/18 21:41 Order name: XRAY Chest (1 view) cp 03/18 21:41 Order name: EKG; Complete Time: 21:42 cp 03/19 02:29 Order name: CONS Pharmacy Consult EDMS 03/19 02:29 Order name: CONS Physician Consult EDMS 03/19 02:29 Order name: Consistent Carb (ADA) [address] Rub[address] EDMS 03/19 02:29 Order name: Echo with Doppler EDMS 03/19 02:29 Order name: EKG Electrocardiogram EDMS 03/19 02:29 Order name: EKG Electrocardiogram EDMS 03/19 02:29 Order name: Troponin I EDMS 03/19 02:29 Order name: Troponin I EDMS 03/19 02:29 Order name: Troponin I EDMS 03/19 02:29 Order name: Troponin I EDDC 03/19 02:30 Order name: CORONAVIRUS EDDC 03/19 04:03 Order name: SARS-COV-2 RT PCR EDMS 03/19 04:10 Order name: Thyroid Stimulating Hormone EDDC 03/18 21:41 Order name: Cardiac monitoring; Complete Time: 21:52 cp 03/18 21:41 Order name: EKG - Nurse/Tech; Complete Time: 21:52 cp 03/18 21:41 Order name: IV Saline Lock; Complete Time: 22:09 cp 03/18 21:41 Order name: Labs collected and sent; Complete Time: 22:09 cp 03/18 21:41 Order name: O2 Per Protocol; Complete Time: 21:52 cp 03/18 21:41 Order name: O2 Sat Monitoring; Complete Time: 21:52 cp EC/20 21:50 Rate is 69 beats/min. Rhythm is regular. MN interval is normal. QRS interval is normal. cp QT interval is normal. T waves are Flattened in lead aVL. Interpreted by me. Reviewed by me. Administered Medications: 21:59 Drug: Aspirin Chewable Tablet 324 mg Route: PO; jb4 22:30 Follow up: Response: No adverse reaction jb4 Disposition: 03/19/20 02:04 Hospitalization ordered by Arsenio Hurley for Observation. Preliminary diagnosis is Chest pain, unspecified. - Bed requested for Telemetry/MedSurg (observation). - Status is Observation. mg2 - Condition is Stable. - Problem is new. - Symptoms are resolved. Addendum: 03/23/2020 05:30 Co-signature as Attending Physician, Patric Tamez MD. m Signatures: Dispatcher [employer] EDMS Nani Reyes RN RN mw Kelby uMkherjee PA PA cp Thompson Thakkar, RN RN jb4 Rooesvelt Fitch, RN RN mg2 Chalino Leone RN RN ll1 Patric Tamez MD MD [id number] Corrections: (The following items were deleted from the chart) 03/19 02:02 01:49 03/19/2020 01:49 Patients has left against medical advice. Impression: Chest cp pain, unspecified. Patient states they are going to Home. Condition is Stable. Follow up: Private Physician; When: 1 - 2 days; Reason: Recheck today's complaints. Problem is new. Symptoms are resolved. cp 02:13 02:04 Hospitalization Ordered by Arsenio Hurley MD for Observation. Preliminary mw diagnosis is Chest pain, unspecified. Bed requested for Telemetry/MedSurg (observation). Status is Observation. Condition is Stable. Problem is new. Symptoms are resolved. cp 04:25 02:13 03/19/2020 02:04 Hospitalization Ordered by Arsenio Hurley MD for Observation. mg2 Preliminary diagnosis is Chest pain, unspecified. Bed requested for Telemetry/MedSurg (observation). Status is Observation. Condition is Stable. Problem is new. Symptoms are resolved. mw
--- NOTE | 2020-03-19 02:24 | P.HP ---
Patient History Date of Service: 03/19/20 Reason for admission: chest pain History of Present Illness: 69-year-old male past medical history of HTN, HLD, diabetes mellitus type 2 admitted for new onset left-sided chest pain while driving this evening, pain is located in substernal region radiating to the neck, lasted for about an hr. He rates pain at about 4/10. Pain was more of congestive pattern, not sharp or stabbing, he denies any fever and no chills no cough. He denies any associated shortness of breath or palpitations. Pain spontaneously resolved 1 hr after onset and after arrival in the ED. He recalls similar pain of more severity 1 year ago after a constitution party where he has drank some alcohol. He was managed at [facility] with negative sets of cardiac enzymes after which she had a stress test done 1 week later that was essentially negative. He admits to eating a new potato chips 1 hr before onset of symptoms today. Since arrival in the ED he has not had any recurrence of the pain symptoms. He admits to a family history of heavy smoking and valvular heart problem in his father in his 60s patient denies any history of tobacco use. He is a social drinker. States his latest hemoglobin A1c was elevated at about 9 and he was recently started on trulicity. Initial set of cardiac enzymes negative. Patient have a normal findings on EKG. He has been admitted to observation for rule out acute coronary syndrome. Allergies No Known Allergies Allergy (Unverified 03/19/20 02:41) Home medications list reviewed: Yes - Past Medical/Surgical History Has patient received pneumonia vaccine in the past: No -: HTN,HLD,DM-II Past Surgical History: Patient denies surgical history - Social History Smoking Status: Never smoker Alcohol use: No CD- Drugs: No Caffeine use: No Place of Residence: Home Review of Systems 10-point ROS is otherwise unremarkable Physical Examination - Physical Exam General: Alert, In no apparent distress, Oriented x3, Cooperative HEENT: Atraumatic, Normocephalic, PERRLA Neck: Supple, 2+ carotid pulse no bruit, JVD not distended Respiratory: Clear to auscultation bilaterally, Normal air movement Cardiovascular: No edema, Normal pulses, Regular rate/rhythm, Normal S1 S2 Gastrointestinal: Normal bowel sounds, Soft and benign, Non-distended Musculoskeletal: No clubbing, No swelling Integumentary: No rashes, No breakdown Neurological: Normal gait, Normal speech, Normal strength at 5/5 x4 extr, Normal tone - Studies Laboratory Data (last 24 hrs) 03/18/20 22:05: PT 10.8, INR 0.91 03/18/20 22:05: WBC 5.8, Hgb 14.4, Hct 41.8, Plt Count 255 03/18/20 22:05: Sodium 138, Potassium 3.5, BUN 12, Creatinine 0.80, Glucose 266 H, Magnesium 2.2, Total Bilirubin 0.9, AST 18, ALT 16, Alkaline Phosphatase 63 Assessment and Plan - Problems (Diagnosis) (1) Chest pain in adult Current Visit: Yes Status: Acute (2) HTN (hypertension) Current Visit: Yes Status: Acute (3) Diabetes Current Visit: Yes Status: Acute - Advance Directives Does patient have a Living Will: No Does patient have a Durable POA for Healthcare: No - Code Status/Comfort Care Code Status: Full Code Physician Review: Patient Assessed, Agree with Above Assessment and Plan Physician Review Additional Text: ATYPICAL CHEST PAIN-may be due to CAD at rest/but also possible due to the GERD We will do serial set of cardiac enzymes Given multiple risk factor with DC score of 3, patient might benefit from stress test after negative cardiac enzymes. Will consult Cardiology Do sublingual nitroglycerin p.r.n. will start aspirin now will dose Lovenox as well as beta karel although marginally low blood pressure noted Obtain lipid panel, tsh if negative repeat EKG with no changes and Echo wnl , may be able to dc home with outpatient stress test Since possibility of GERD, we start PPI # Hypokalemia - will replete #HTN-borderline low blood pressure, obtain a resume home meds #Diabetes mellitus-under primary/metformin, resume home regimen, do insulin sliding scale with Accu-Cheks #Disposition possible hospital stay for less than 24 hr #Advanced directive patient wishes to be full code Patient anxious to be discharged home son. He was initially planning to leave AMA but later agreeable to staying to complete 3rd set of cardiac enzymes as well as repeat EKG in a.m.. If repeat EKG and cardiac enzyme normal , patient can be discharged to follow up with his pet sitting for repeat outpatient stress test Time Spent Managing Pts Care (In Minutes): 70
[2020-03-19] MEDS ORDERED: MORPHINE 2 MG/ML SYR IV PRN (02:25)
[2020-03-19] MEDS ORDERED: ONDANSETRON 4 MG/2 ML VIAL IV PRN (02:25)
[2020-03-19] MEDS ORDERED: POTASSIUM 25 MEQ EFFERV TAB PO ONE (02:28)
[2020-03-19] MEDS ORDERED: SODIUM CHLORIDE 0.9% 10ML INJ IV PRN (03:00)
[2020-03-19] MEDS ORDERED: PANTOPRAZOLE 40 MG INJ IVP ONE (03:00)
[2020-03-19] MEDS ORDERED: POTASSIUM 25 MEQ EFFERV TAB ONE (03:50)
[2020-03-19 04:32] VITALS: BMI 24.8
[2020-03-19 05:50] LABS: HDL Cholesterol 37 mg/dL (40-60); LDL Cholesterol, Calculated 29 (<130)
[2020-03-19] MEDS ORDERED: LEVOTHYROXINE SOD 0.1 MG TAB PO SCH (06:30)
[2020-03-19] MEDS ORDERED: PANTOPRAZOLE 40MG TABLET PO SCH (06:30)
--- NOTE | 2020-03-19 07:35 | EKG ---
Test Date: 2020-03-18 Test Time: 21:39:01 [employer] Supervisor: JULIA MEASUREMENT RESULTS: Intervals: Rate: 69 AZ: 158 QRSD: 94 QT: 424 QTc: 454 Keeler: P: 64 AZ: 158 QRS: 20 T: 51 INTERPRETIVE STATEMENTS: Normal sinus rhythm Normal ECG Compared to ECG 03/30/2004 05:36:00 T-wave abnormality no longer present Electronically Signed On 03-19-20 07:34:15 CARE WORKER by Sam Acosta
--- NOTE | 2020-03-19 08:03 | RAD REPORT ---
EXAM DESCRIPTION: [facility] Single View03/18/2020 10:26 pm CLINICAL HISTORY: Chest pain COMPARISON: none FINDINGS: The lungs appear clear of acute infiltrate. The heart is normal size IMPRESSION: No acute abnormalities displayed
[2020-03-19] MEDS: INSULIN -REGULAR HUMAN 50 UNIT/0.5 ML ML SQ SCH ×3 (08:46→16:30)
[2020-03-19] MEDS ORDERED: ASPIRIN 81 MG CHEWABLE TABLET PO SCH (09:00)
[2020-03-19] MEDS ORDERED: ENOXAPARIN 40 MG/0.4 ML SQ SCH (09:00)
[2020-03-19] MEDS ORDERED: ATORVASTATIN 40 MG TAB PO SCH (09:00)
[2020-03-19] MEDS ORDERED: BISOPROLOL/HCTZ 5/6.25MG TAB PO SCH (09:00)
[2020-03-19] MEDS ORDERED: NITROGLYCERIN 0.2 MG/HR (5 MG) PATCH TD SCH (09:00)
[2020-03-19] MEDS ORDERED: HEPA 1000U/500MLS 2,000 UNIT/1,000 ML BAG IV ONE (14:16)
[2020-03-19] MEDS ORDERED: NA CHLORIDE 0.9% 500 ML ONE ×2 (14:46→15:47)
[2020-03-19] MEDS ORDERED: HEPARIN 5000 UNIT/ML 1 ML VIAL ONE (15:02)
[2020-03-19] MEDS ORDERED: MIDAZOLAM HCL 2 MG/2 ML INJ ONE (15:02)
[2020-03-19] MEDS ORDERED: FENTANYL CITR 100 MCG/2 ML ONE (15:03)
[2020-03-19] MEDS ORDERED: NITROGLYCERIN 100 MCG/ML SYR (for cath lab use only) IV ONE (15:03)
--- NOTE | 2020-03-19 16:07 | P.DS ---
Admission Date: 03/19/20 Discharge Date: 03/19/20 Primary Care Provider: Dr. Lopez Disposition: ROUTINE DISCHARGE Discharge Condition: GOOD Reason for Admission: chest pain Consultations: Cardiology-Dr. De Procedures: Heart catheterization: Normal coronaries Medical problem list: Chest pain Hypertension Diabetes mellitus type 2 Hyperlipidemia GERD Hypothyroidism Brief History of Present Illness: 69-year-old male past medical history of HTN, HLD, diabetes mellitus type 2 admitted for new onset left-sided chest pain while driving this evening, pain is located in substernal region radiating to the neck, lasted for about an hr. He rates pain at about 4/10. Pain was more of congestive pattern, not sharp or stabbing, he denies any fever and no chills no cough. He denies any associated shortness of breath or palpitations. Pain spontaneously resolved 1 hr after onset and after arrival in the ED. He recalls similar pain of more severity 1 year ago after a libertarian where he has drank some alcohol. He was managed at [facility] with negative sets of cardiac enzymes after which she had a stress test done 1 week later that was essentially negative. He admits to eating a new potato chips 1 hr before onset of symptoms today. Since arrival in the ED he has not had any recurrence of the pain symptoms. He admits to a family history of heavy smoking and valvular heart problem in his father in his 60s patient denies any history of tobacco use. He is a social drinker. States his latest hemoglobin A1c was elevated at about 9 and he was recently started on trulicity. Initial set of cardiac enzymes negative. Patient have a normal findings on EKG. He has been admitted to observation for rule out acute coronary syndrome. Hospital Course: Patient presented with chest pain. Patient with history of hypertension, diabetes mellitus type 2, hyperlipidemia, and hypothyroidism. The patient was admitted for further evaluation. Cardiac enzymes unremarkable. Patient was seen and evaluated by Cardiology. Due to his risk factors heart catheterization was recommended. Heart catheterization performed showed normal coronaries. No further cardiac intervention is required. This may be GERD related. Recommend Pepcid 20 mg 1 pill twice daily over the counter. If this persists, recommend GI evaluation as an outpatient. Patient may follow up with cardiology in 1 month to follow up this hospitalization. At discharge patient will continue with his current medications of aspirin 81 mg daily, Lipitor 40 mg daily, Ziac 5/6.25 mg daily, and lisinopril 20 mg daily. Patient with hypertension. This has remained stable. At discharge he will continue with his current medication. Recommend to maintain blood pressure less than 130/80. Further adjustment can be done by his PCP. Patient with diabetes mellitus type 2. Patient takes Amaryl 4 mg daily and metformin 1000 mg 1 pill twice daily. Patient may restart metformin after 2 days. Recommend follow up with his PCP to further monitor and address. Recommend to maintain blood sugars less 140 fasting and less than 200 after meals. Further adjustment can be done by his PCP. Patient with hyperlipidemia. LDL 29. At discharge he will continue with Lipitor 40 mg daily. Patient with hypothyroidism. Tsh within normal range. At discharge patient will continue with levothyroxine 100 mcg daily. Vital Signs/Physical Exam: Temp Pulse Resp BP Pulse Ox 98.4 F 70 20 109/65 96 03/19/20 12:00 03/19/20 12:00 03/19/20 12:00 03/19/20 12:00 03/19/20 12:00 General: Alert, In no apparent distress, Oriented x3, Cooperative HEENT: Atraumatic Neck: Supple Respiratory: Clear to auscultation bilaterally, Normal air movement Cardiovascular: Normal pulses, Regular rate/rhythm Gastrointestinal: Normal bowel sounds, Soft and benign, Non-distended Musculoskeletal: No erythema, No tenderness, No warmth Integumentary: No tenderness/swelling, No erythema, No warmth, No cyanosis Neurological: Normal speech, Normal strength at 5/5 x4 extr, Normal tone, Normal affect Laboratory Data at Discharge: WBC 5.8 K/uL (4.3-10.9) 03/18/20 22:05 Hgb 14.4 g/dL (13.6-17.9) 03/18/20 22:05 Hct 41.8 % (39.6-49.0) 03/18/20 22:05 Plt Count 255 K/uL (152-406) 03/18/20 22:05 PT 10.8 SECONDS (9.5-12.5) 03/18/20 22:05 INR 0.91 03/18/20 22:05 Sodium 138 mmol/L (136-145) 03/18/20 22:05 Potassium 3.5 mmol/L (3.5-5.1) 03/18/20 22:05 BUN 12 mg/dL (7-18) 03/18/20 22:05 Creatinine 0.80 mg/dL (0.55-1.3) 03/18/20 22:05 Glucose 266 mg/dL (74-106) H 03/18/20 22:05 Magnesium 2.2 mg/dL (1.8-2.4) 03/18/20 22:05 Total Bilirubin 0.9 mg/dL (0.2-1.0) 03/18/20 22:05 AST 18 U/L (15-37) 03/18/20 22:05 ALT 16 U/L (12-78) 03/18/20 22:05 Alkaline Phosphatase 63 U/L (45-117) 03/18/20 22:05 Troponin I Cancelled 03/19/20 18:30 Triglycerides Cancelled 03/19/20 05:00 Cholesterol Cancelled 03/19/20 05:00 HDL Cholesterol Cancelled 03/19/20 05:00 Cholesterol/HDL Ratio Cancelled 03/19/20 05:00 Home Medications: Aspirin Chewable [Aspirin Chewable*] 81 mg PO DAILY 03/19/20 Atorvastatin Calcium [Lipitor] 40 mg PO DAILY 03/19/20 Bisoprolol/Hctz [Ziac 5/6.25*] 1 tab PO DAILY 03/19/20 Glimepiride [Amaryl] 4 mg PO DAILY 03/19/20 Levothyroxine [Synthroid*] 0.1 mg PO DAILY 03/19/20 Lisinopril [Zestril] 20 mg PO DAILY AT SUPPER 03/19/20 Metformin HCl 1,000 mg PO BID 03/19/20 Patient Discharge Instructions: 1. Recommend follow up with PCP in 1 week to follow up this hospitalization. 2. Patient presented with chest pain. Patient with history of hypertension, diabetes mellitus type 2, hyperlipidemia, and hypothyroidism. The patient was admitted for further evaluation. Cardiac enzymes unremarkable. Patient was seen and evaluated by Cardiology. Due to his risk factors heart catheterization was recommended. Heart catheterization performed showed normal coronaries. No further cardiac intervention is required. This may be GERD related. Recommend Pepcid 20 mg 1 pill twice daily over the counter. If this persists, recommend GI evaluation as an outpatient. Patient may follow up with cardiology in 1 month to follow up this hospitalization. At discharge patient will continue with his current medications of aspirin 81 mg daily, Lipitor 40 mg daily, Ziac 5/6.25 mg daily, and lisinopril 20 mg daily. 3. Patient with hypertension. This has remained stable. At discharge he will continue with his current medication. Recommend to maintain blood pressure less than 130/80. Further adjustment can be done by his PCP. 4. Patient with diabetes mellitus type 2. Patient takes Amaryl 4 mg daily and metformin 1000 mg 1 pill twice daily. Patient may restart metformin after 2 days. Recommend follow up with his PCP to further monitor and address. Recommend to maintain blood sugars less 140 fasting and less than 200 after meals. Further adjustment can be done by his PCP. 5. Patient with hyperlipidemia. LDL 29. At discharge he will continue with Lipitor 40 mg daily. 6. Patient with hypothyroidism. Tsh within normal range. At discharge patient will continue with levothyroxine 100 mcg daily. Diet: ADA Activity: Ad oswald Followup: Dillon Lopez MD [Primary Care Provider] - Time spent managing pt's care (in minutes): 55
--- NOTE | 2020-03-19 16:13 | OP ---
Date of Procedure: 03/19/2020 Surgeon: TAN RUFF Procedures Performed: 1.Selective coronary angiogram. 2.Left heart catheterization. Access: Right radial artery 6-Macanese, closed with TR band. Complications: None. Indication: Unstable angina. Anesthesia: Total sedation time was 15 minutes. Description Of Procedure: After risks, benefits, and alternatives were explained to the patient, he agreed to the procedure and signed informed consent. We used fentanyl and Versed in incremental dose s to achieve adequate moderate sedation. Then, we accessed right radial artery using pediatric micro puncture kit and then I took a 5-Macanese [place] catheter into the aortic root and engaged the left main , right coronary artery and took standard views. Then, the catheter was pushed over the wire into th e LV, recorded LVEDP and upon pullback, there was no significant difference in gradient. Findings: 1.Left main; large and normal. 2.LAD; moderate size, tapers down after the diagonal takeoff, but no significant coronary artery dis ease. Has a minimal luminal irregularities. 3.Left circumflex; totally clean artery, moderate to large size. 4.RCA is dominant circulation with very minor luminal irregularities. No significant coronary arter y disease. Impression: 1.No significant coronary artery disease, very mild luminal irregularity, otherwise it is a normal c oronary angiogram. 2.LVEDP of 5 mmHg. Recommendations: Medical management and the patient can be discharged today from Cardiology standpoi nt. /DK Voice ID: [id number] Report ID: [id number]
--- NOTE | 2020-03-19 16:40 | CON ---
Date of Consultation: 03/19/2020 Reason For Consultation: Chest pain. 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 Had 2 episodes and radiation, made him conc erned and he apparently had a heart cath back in 2002 and was told that he has 30% disease in 1 of th e arteries. Denies having any shortness of breath. No nausea, vomiting, diarrhea, or diaphoresis. Past Medical History: Diabetes, hypertension, and dyslipidemia. Medications: Refer to reconciliation sheet for detailed list. Allergies: NO KNOWN DRUG ALLERGIES. Social History: Does not smoke or drink. Does not use any drugs. Family History: No premature coronary artery disease or cancer. Review of Systems: All systems were reviewed and they were negative except what mentioned in the HPI. Physical Examination: Vital Signs: Temperature is 98.4, pulse 70, breathing 18, blood pressure 109/65, saturating 96%. General: Pleasant, middle-aged male, no apparent distress. Head and Neck: Pupils are equal, reactive to light. Intact eye movements. No JVD. No cervical lym phadenopathy. Neck: Supple. Thyroid is not enlarged. Lungs: Clear to auscultation bilaterally. No rhonchi, rales, or crackles. No accessory muscle use. Heart: Regular rate and rhythm. No extra sounds. Abdomen: Soft, nontender. Bowel sounds positive. No organomegaly. No masses or hernia. No rigidi ty or rebound. Extremities: No edema, clubbing, or cyanosis. Intact pulses. Skin: No rash noted. Neurologic: Alert, awake, oriented x3. No acute focal deficits appreciated. Lymph Nodes: No cervical or axillary lymphadenopathy. Investigations: Sodium is 138, creatinine is 0.8. Troponin less than 0.02 x2. LDL cholesterol is 2 9. EKG without acute specific abnormalities. Assessment And Plan: 1.Chest pain, possible unstable angina. With his risk factors, recommend coronary angiogram. Risks , benefits, and alternatives were explained and the patient agreed to the procedure. We will plan fo r coronary angiogram today and further recommendations accordingly. 2.Dyslipidemia. Continue statin. SR/MODL Voice ID: [id number] Report ID: [id number]
[2020-03-19] MEDS ORDERED: lisinopriL 20 MG TAB PO SCH (17:00)
[2020-03-19 18:00] VITALS: BP 127/64; TEMP 97.8
[2020-03-19 18:41] VITALS: O2SAT 97
--- NOTE | 2020-03-20 08:31 | ECHO ---
HEIGHT: 6 ft 2 in WEIGHT: 193 lb 11.2 oz DATE OF STUDY: 03/19/[address]: Arsenio Hurley MD 2-DIMENSIONAL: YES M.MODE: YES DOPPLER: YES COLOR FLOW: YES TDS: NO PORTABLE: NO DEFINITY: NO BUBBLE STUDY: NO DIAGNOSIS: CEREBRAL VASCULAR ACCIDENT, RULE OUT VEGETATIONS CARDIAC HISTORY: CATHERIZATION: YES SURGERY: NO PROSTHETIC VALVE: NO PACEMAKER: NO MEASUREMENTS (cm) DIASTOLIC (NORMALS) SYSTOLIC (NORMALS) IVSd 0.8 (0.6-1.2) LA Diam 3.8 (1.9-4.0) LVEF 69% LVIDd 3.8 (3.5-5.7) LVIDs 2.4 (2.0-3.5) %FS 38% LVPWd 1.1 (0.6-1.2) Ao Diam 2.8 (2.0-3.7) 2 DIMENSIONAL ASSESSMENT: RIGHT ATRIUM: NORMAL LEFT ATRIUM: NORMAL RIGHT VENTRICLE: NORMAL LEFT VENTRICLE: NORMAL TRICUSPID VALVE: NORMAL MITRAL VALVE: NORMAL PULMONIC VALVE: NORMAL AORTIC VALVE: NORMAL PERICARDIAL EFFUSION: NONE AORTIC ROOT: NORMAL LEFT VENTRICULAR WALL MOTION: NORMAL DOPPLER/COLOR FLOW: NORMAL COMMENTS: NORMAL LEFT VENTRICULAR EJECTION FRACTION 55-60%. NORMAL WALL MOTION. TECHNOLOGIST: David KIRK
== END 2020-03-19 19:16 | disposition home or self-care (01) ==
LOC: ER 21:17 → ERHOLD 03-19 02:31 → 2ND 03-19 04:13
PROVIDERS: ADMIT Internal Medicine; ATTEND Family Medicine
DX: R07.9 Chest pain, unspecified (principal); E11.9 Type 2 diabetes mellitus without complications; I10 Essential (primary) hypertension; E78.5 Hyperlipidemia, unspecified; E03.9 Hypothyroidism, unspecified; K21.9 Gastro-esophageal reflux disease without esophagitis; Z20.828 Contact with and (suspected) exposure to other viral communicable diseases; Z79.84 Long term (current) use of oral hypoglycemic drugs
CPT/HCPCS: 93005; 93306; 85025; 80048; 36415; 83735; 85610; 80061; 82947 ×3; 80076; 84443; 84484 ×2; 83880; 71045; 93458; 94760; 99285; U0003; C1893; J1644 ×2; C9113; J2250; J3010; J7040 ×2